=== PATIENT | male | born 1990 | race Caucasian/White ===

== ENCOUNTER 2016-07-29 04:06 | Emergency (ER) | payer SELFPAY ==
[~2016-07-29] VITALS: Ht 180.3 cm; Wt 66.0 kg
[~2016-07-29 04:06] MED LIST: BACT800T5 PO; CLIN150 PO; IBUP800T23 PO
[2016-07-29 04:14] VITALS: BP 124/85; PULSE 125; RESP 20; TEMP 98.6; O2SAT 96
[2016-07-29 04:32] VITALS: PULSE 118; RESP 22; O2SAT 98
[2016-07-29] MEDS ORDERED: ACETAMINOPHEN 325 MG TAB PO ONE (04:45)
--- NOTE | 2016-07-29 04:53 | PD ---
HPI Chief Complaint: Bite or Sting Time Seen by Provider: 04:30 Travel History International Travel<30 days: No Contact w/Intl Traveler<30days: No Traveled to known affect area: No History of Present Illness HPI 25yo M with no PMH presents to the ED with c/o right hand and left forearm pain s/p dog bite. Pt states he was letting his dog out at 4am today and 2 stray dogs came up and bit him. Pt has laceration to the right fifth digit and left forearm. Denies any fever, chest pain, sob, abdominal pain. Pt has some numbness in right fifth digit initially. States tetanus up to date and refusing rabies vaccination. PFSH Past Medical History Medical History: Denies Significant Hx Tetanus Vaccination: < 5 Years Influenza Vaccination: No Social History Alcohol Use: Yes (BEERS DAILY) Tobacco Use: Yes (10 CIG PER DAY) Substance Use: Yes (WEED) Allergies-Medications (Allergen,Severity, Reaction): Coded Allergies: Penicillin (Verified Allergy, Unknown, 07/29/16) Reported Meds & Prescriptions Reported Meds & Active Scripts Active Ibuprofen 600 Mg Tab 600 Mg PO Q8HR PRN Bactrim DS (Sulfamethoxazole-Trimethoprim) 800-160 Mg Tab 1 Tab PO BID Review of Systems Except as stated in HPI: all other systems reviewed are Neg Physical Exam Narrative GENERAL: 25yo M in mild distress. SKIN: Focused skin assessment warm/dry. HEAD: Atraumatic. Normocephalic. CARDIOVASCULAR: Regular rate and rhythm. No murmur appreciated. RESPIRATORY: No accessory muscle use. Clear to auscultation. Breath sounds equal bilaterally. GASTROINTESTINAL: Abdomen soft, non-tender, nondistended. MUSCULOSKELETAL: Right hand: +2cm laceration right fifth MCP on dorsal aspect. Small wound on volar aspect of right fifth digit. Full range of motion in all joints. Sensation intact. NEUROLOGICAL: Awake and alert. No obvious cranial nerve deficits. Motor grossly within normal limits. Normal speech. PSYCHIATRIC: Appropriate mood and affect; insight and judgment normal. Data Data Last Documented VS Vital Signs Date Time Temp Pulse Resp B/P Pulse Ox O2 Delivery O2 Flow Rate FiO2 07/29/16 04:32 118 22 98 Room Air 07/29/16 04:14 98.6 124/85 Orders Forearm (2vws) (07/29/16 ) Hand, Limited (2vws) (07/29/16 ) Acetaminophen (Tylenol) (07/29/16 04:45) MDM Medical Decision Making Medical Screen Exam Complete: Yes Emergency Medical Condition: Yes Interpretation(s) Last Impressions Radius/Ulna X-Ray 07/29/16 0000 Signed Impressions: Service Date/Time: Friday, July 29, 2016 04:38 - CONCLUSION: Intact left forearm. Kemal Ugarte MD Hand X-Ray 07/29/16 0000 Signed Impressions: Service Date/Time: Friday, July 29, 2016 04:41 - CONCLUSION: No fracture, subluxation or radiopaque foreign body seen of the right hand. Kemal Ugarte MD Differential Diagnosis Dog bite vs. fracture Narrative Course 25yo M here with bite jerardo on right hand and left forearm after being bitten by a stray dog. Wound was irrigated well with no foreign body visualized. Right fifth digit wound approximated with steri strips. Xray right hand showed no fracture, subluxation or radiopaque foreign body or right hand. Xray left forearm negative. Acetaminophen given. Pt still does not want rabies vaccination. Pt is allergic to penicillin so cannot give augment, will give bactrim. Return precautions given. Diagnosis Primary Impression: Dog bite Qualified Code: W54.0XXA - Dog bite, initial encounter Patient Instructions: General Instructions Departure Forms: Tests/Procedures Additional Instructions: Please follow up with PMD in 3-7 days. Return to the ED if any signs of infection. Med/Other Pt SpecificInfo: Prescription(s) given Scripts Ibuprofen 600 Mg Fca177 Mg PO Q8HR PRN (PAIN) #20 TAB Ref 0 Prov:Janie Nieto DO 07/29/16 Sulfamethoxazole-Trimethoprim (Bactrim DS)800-160 Mg Tab1 Tab PO BID #14 TAB Ref 0 Prov:Janie Nieto DO 07/29/16 Disposition: 01 DISCHARGE HOME Condition: Stable Janie Nieto DO Jul 29, 2016 04:53
--- NOTE | 2016-07-29 05:05 | RADRPT ---
EXAM DATE/TIME: 07/29/2016 04:38 [facility] COMPARISON: No previous studies available for comparison. INDICATIONS : Dog bite. Puncture to left mid forearm. MEDICAL HISTORY : None. SURGICAL HISTORY : None. ENCOUNTER: Initial ACUITY: 1 day PAIN SCORE: 6/10 LOCATION: Left upper extremity FINDINGS: Two view examination of the left forearm demonstrates no evidence of fracture or dislocation. Bony m ineralization is normal. The soft tissue structures are intact. CONCLUSION: Intact left forearm. Kemal Ugarte MD on July 29, 2016 at 5:04 Board Certified Radiologist. This report was verified electronically.
--- NOTE | 2016-07-29 05:08 | RADRPT ---
EXAM DATE/TIME: 07/29/2016 04:41 [facility] COMPARISON: No previous studies available for comparison. INDICATIONS : Dog bite. Multiple puncture wounds right hand. MEDICAL HISTORY : None. SURGICAL HISTORY : None. ENCOUNTER: Initial ACUITY: 1 day PAIN SCORE: 8/10 LOCATION: Right upper extremity FINDINGS: Two view examination of the right hand demonstrates no soft tissue swelling, dislocation, or fracture . The joint spaces are maintained. Bony mineralization is normal. CONCLUSION: No fracture, subluxation or radiopaque foreign body seen of the right hand. Kemal Ugarte MD on July 29, 2016 at 5:04 Board Certified Radiologist. This report was verified electronically.
[2016-07-29] MEDS ORDERED: IBUP-232 PO (06:31)
[2016-07-29] MEDS ORDERED: BACT800T5 PO (06:31)
== END 2016-07-29 06:39 | disposition home or self-care (01) ==
LOC: NEPC 04:06
DX: S61.451A Open bite of right hand, initial encounter (principal); S51.852A Open bite of left forearm, initial encounter; W54.0XXA Bitten by dog, initial encounter
CPT/HCPCS: 73090; 73120; 99283